=== PATIENT | female | born 1980 | race African-American/Black ===

== ENCOUNTER 2016-11-20 15:58 | Emergency (ER) | payer OTHER ==
[2016-11-20] MEDS ORDERED: NORCO, ANEXSIA 5/325MG TABLET (HYDROcodone/ACETAMINOPHEN) As Ordered ONE (17:15)
[2016-11-20 17:41] LABS: MEAN CORPUSCULAR HEMOGLOBIN 24.3 pg (27.0-33.0); MEAN CORPUSCULAR VOLUME 75.8 fl (80.0-96.0); WHITE BLOOD COUNT 6.8 K/mm3 (4.0-10.0)
[2016-11-20 18:25] LABS: CONTROL LINE HCG INT CTR LINE PRESENT
[2016-11-20 18:29] LABS: ANION GAP 7 MEQ/L (8-16); BLOOD UREA NITROGEN 18 MG/DL (7-18); CARBON DIOXIDE LEVEL 30 MEQ/L (21-32); CHLORIDE LEVEL 101 MEQ/L (98-107); CREATININE FOR GFR 0.92 MG/DL (0.55-1.02); GLOMERULAR FILTRATION RATE > 60.0 (>60); GLUCOSE, FASTING 249 MG/DL (70-105); SODIUM LEVEL 138 MEQ/L (136-145)
--- NOTE | 2016-11-20 19:23 | REP ---
PELVIC ULTRASOUND AND ENDOVAGINAL PROBE ULTRASOUND: 11/20/2016. Clinical history: Right lower quadrant pain. Comparison: 10/15/2016. Findings transverse and longitudinal views with the transabdominal and endovaginal probes were utilized. The uterus is deviated towards the right side and is retroflexed. It is somewhat enlarged at 11.3 x 5.4 x 7 cm. The central and endometrial stripe with a normal thickness of 3.4 mm. No discrete or measurable masses are noted in the uterus although it is subtly heterogeneous. Right ovary is 2.9 x 1.7 x 3 cm. The left ovary is 2.9 x 1.2 x 3.2 cm. Doppler tracing shows resistive index of 0.45 for the right and 0.61 for the left ovary. There are small follicles in both ovaries but no cyst or solid mass evident. The largest follicle on the right is 12 mm and on the left about 8 meters. There is a small amount of fluid in the posterior cul-de-sac. Impression: 1. Retroverted uterus slightly deviated towards the right and somewhat enlarged and slightly heterogeneous. No discrete mass with normal endometrial stripe. 2. Ovaries normal in size and blood flow. No cyst, solid mass or evidence for torsion. However, there is a small amount of fluid in the posterior cul-de-sac. Signed by Kyree Major MD 11/20/2016 08:05 P
--- NOTE | 2016-11-20 19:34 | EDDOCDS ---
Physician Documentation [facility] Name: Cami Dc Age: 36 yrs Sex: Female : 1980 Arrival Date: 11/20/2016 Time: 15:58 Bed PR Private MD: No Pcp Disposition: 11/20/16 19:18 Discharged to Home/Self Care. Impression: Abdominal and pelvic pain. - Condition is Stable. - Discharge Instructions: Abdominal Pain, Adult. - Prescriptions for Naprosyn 500 mg Oral Tablet - take 1 tablet by ORAL route 2 times per day take with food; 30 tablet. Zofran 4 mg Oral Tablet - take 1 tablet by ORAL route 4 times per day As needed; 10 tablet. - Medication Reconciliation, Local Pharmacy Hours form. - Follow up: Felicita Arroyo MD; When: Call to arrange an appointment; Reason: Further diagnostic work-up, Continuance of care. - Problem is an ongoing problem. - Symptoms are unchanged. Historical: - Allergies: no known allergies; - Home Meds: 1. metformin 500 mg Oral tab 2 times per day (Last dose: 11/19/2016 22:00) - PMHx: Diabetes - NIDDM: controlled; Ovarian cyst; - PSHx: none; - Social history: Smoking status: Patient states was never smoker of tobacco. Patient uses alcohol occasionally. Patient/guardian denies using street drugs, No barriers to communication noted, The patient speaks fluent Swazi, Speaks appropriately for age. - Family history: Not pertinent. - : The pt / caregiver states he / she is not on anticoagulants. Home medication list is obtained from the patient. - Exposure Risk Screening:: None identified. 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 6 in. (167.64 cm); Pain 9/10; 19:30 BP 125 / 71; Pulse 85; Resp 16; Temp 96.8(O); Pulse Ox 100% on R/A; Pain 5/10; jf3 16:00 Body Mass Index 21.95 (61.69 kg, 167.64 cm) cmb MDM: 16:47 UA Ordered. EDMS 17:14 HYDROcodone-acetaminophen 5 mg-325 mg 1 tabs PO once ordered. ke 17:14 UA Reviewed. ke 17:15 CBC Ordered. EDMS 17:15 BMP Ordered. EDMS 17:15 HCG,Serum Qualitative Ordered. EDMS 17:15 -US Pelvic Non-Ob Complete Ordered. EDMS 17:15 DUPLEX SCAN LIMITED (DOPPLER)+US Ordered. EDMS 17:25 [facility] Payment Agreement was scanned into [employer] and attached to record. gjb 17:25 Financial registration complete. gjb 17:44 Transvaginal NON- US Ordered. EDMS 19:15 CBC Reviewed. ke 19:15 BMP Reviewed. ke 19:15 HCG,Serum Qualitative Reviewed. katia Point of Care Testing: Urine : 16:45 hCG Reading: Negative; Control Reading: Positive; ttb Ranges: Administered Medications: 17:17 Drug: HYDROcodone-acetaminophen 1 tabs [hydrocodone 5 mg-acetaminophen 325 mg tablet (1 jf3 tabs)] Route: PO; Signatures: Dispatcher [employer] EDJong Tirado, POWER LINE INSTALLER AND REPAIRER POWER LINE INSTALLER AND REPAIRERRosa Melgoza RN RN ttb Bhavik Cruz,RN RN Yee Pena The chart was reviewed and I authenticate all verbal orders and agree with the evaluation and treatment provided.Attachments: 17:25 [facility] Payment Agreement gjb MTDD
--- NOTE | 2016-11-20 19:34 | EDDOCDS ---
Nurse's Notes [facility] Name: Cami Dc Age: 36 yrs Sex: Female : 1980 Arrival Date: 11/20/2016 Time: 15:58 Bed PR Private MD: No Pcp Diagnosis: Abdominal and pelvic pain Presentation: 11/20 16:14 Presenting complaint: Patient states: right lower abd pain : dx with ovarian cyst last ttb week. Pain increased today, pt unable to get into see PCP until Friday. 9/10 pain. Denies n/v/d. "cramping". Denies changes or vag bleeding. Risk factors: the patient reports no vaginal bleeding. Adult Sepsis Screening: The patient does not have new or worsening altered mentation. Patient's respiratory rate is less than 22. Systolic blood pressure is greater than 100. Patient has a qSOFA score of 0- Negative Sepsis Screen. Suicide/Homicide risk assessment- the patient denies having any suicidal and/or homicidal ideations and does not present with any other emotional, behavioral or mental health complaints. Status: Patient is not a service crew leader or dependent. Transition of care: patient was not received from another setting of care. 16:14 Acuity: DIRK Level 3 ttb 16:14 Method Of Arrival: Walkin/Carried/Asstd ttb Triage Assessment: 16:16 General: Appears in no apparent distress, uncomfortable, well nourished, well groomed, ttb Behavior is appropriate for age, cooperative, pleasant. Pain: Location: 9/10 Pain does not radiate. HIV screening NA for this visit Offered previously. Neurological: Level of Consciousness is awake, alert, Oriented to person, place, time. Cardiovascular: Chest pain is denied. Respiratory: No deficits noted. Airway is patent Denies cough, shortness of breath. GI: Reports lower abdominal pain, Denies constipation, diarrhea, nausea, vomiting. : Denies burning with urination, urinary frequency, urgency, vaginal bleeding. Derm: Skin is normal. Injury Description: No known injury. 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 metformin 500 mg Oral tab 2 times per day (Last dose: 11/19/2016 22:00) - PMHx: Diabetes - NIDDM: controlled; Ovarian cyst; - PSHx: none; - Social history: Smoking status: Patient states was never smoker of tobacco. Patient uses alcohol occasionally. Patient/guardian denies using street drugs, No barriers to communication noted, The patient speaks fluent East Timorese, Speaks appropriately for age. - Family history: Not pertinent. - : The pt / caregiver states he / she is not on anticoagulants. Home medication list is obtained from the patient. - Exposure Risk Screening:: None identified. Screenin:30 Screening information is obtained from the patient. Fall risk: No risks identified. jf3 Assistance ADL's: requires no assistance with activities of daily living. Abuse/DV Screen: The patient / caregiver reports he/she is: not in a situation that causes fear, pain or injury. Nutritional screening: No deficits noted. Advance Directives: Currently, there is no health care proxy. home support is adequate. Assessment: 19:30 General: Appears in no apparent distress, comfortable, Behavior is cooperative. Pain: jf3 Pain currently is 5 out of 10 on a pain scale. Neurological: Level of Consciousness is awake, alert, Oriented to person, place, time. Cardiovascular: Capillary refill < 3 seconds Chest pain is denied. Respiratory: Airway is patent Respiratory effort is even, unlabored, Respiratory pattern is regular, symmetrical. GI: Abdomen is non- distended Bowel sounds present X 4 quads. Abd is soft X 4 quads. Derm: Skin is normal. Vital Signs: 16:00 BP 112 / 74; Pulse 88; Resp 16; Temp 97.3(O); Pulse Ox 100% ; Weight 61.69 kg; Height 5 cmb ft. 6 in. (167.64 cm); Pain 9/10; 19:30 BP 125 / 71; Pulse 85; Resp 16; Temp 96.8(O); Pulse Ox 100% on R/A; Pain 5/10; jf3 16:00 Body Mass Index 21.95 (61.69 kg, 167.64 cm) cmb Vitals: 16:00 Log In Time: November 20, 2016 at 15:58. cmb ED Course: 15:58 Patient visited by Edwina Gomez. cmb 15:58 Patient moved to Waiting cmb 15:59 No Pcp is Private Physician. cmb 16:00 Patient moved to Pre RCE cmb 16:15 Triage Initiated ttb 16:19 Patient visited by Rosa Ramos RN. ttb 16:45 Urine collected. Clean catch specimen. ttb 16:52 Patient moved to Triage 1 jf3 16:52 Patient moved to Pre RCE jf3 16:53 Patient moved to Triage 3 jf3 16:59 UA Sent. rs6 17:07 [facility]. ke 17:07 Patient visited by Jong Petty FNP. ke 17:07 Patient visited by Jong Petty FNP. ke 17:23 HCG,Serum Qualitative Sent. jf3 17:23 BMP Sent. jf3 17:23 CBC Sent. jf3 17:25 [facility] Payment Agreement was scanned into [employer] and attached to record. gjb 17:26 Patient moved to TR1 mlb1 17:27 Patient moved to Ultrasound am17 17:29 Patient name changed from Cami\\S\\\\S\\Dc\\S\\ to Cami\\S\\ \\S\\Dc. EDMS 17:42 Patient visited by Jong Petty FNP. ke 17:42 Patient moved to TR1 am17 18:22 Patient visited by Jong Petty FNP. ke 18:59 Patient visited by Jong Petty FNP. ke 19:17 Felicita Arroyo MD is Referral Physician. ke 19:21 Patient moved to PR1 / 25 jf3 19:30 The patient / caregiver is instructed regarding the plan of care and ED course. jf3 19:30 No IV's were initiated during this patient's visit. No procedures done that require jf3 assistance. Administered Medications: 17:17 Drug: HYDROcodone-acetaminophen 1 tabs [hydrocodone 5 mg-acetaminophen 325 mg tablet (1 jf3 tabs)] Route: PO; Point of Care Testing: Urine : 16:45 hCG Reading: Negative; Control Reading: Positive; ttb Ranges: Order Results: Lab Order: UA; SPEC'M 11/20/16 16:20 Test: APPEARANCE, URINE; Value: HAZY; Range: CLEAR; Status: F Test: COLOR, URINE; Value: YELLOW; Range: YELLOW; Status: F Test: PH,URINE; Value: 6.0; Range: 5.0-9.0; Units: UNITS; Status: F Test: SPECIFIC GRAVITY URINE AUTO; Value: 1.029; Range: 1.002-1.035; Status: F Test: PROTEIN, URINE AUTO; Value: NEGATIVE; Range: NEGATIVE; Units: mg/dL; Status: F Test: GLUCOSE, URINE (UA) AUTO; Value: 3+; Range: NEGATIVE; Abnormal: Above high normal; Units: mg/dL; Status: F Test: KETONE, URINE AUTO; Value: NEGATIVE; Range: NEGATIVE; Units: mg/dL; Status: F Test: UROBILINOGEN, URINE AUTO; Value: 0.2; Range: 0.0-2.0; Units: mg/dL; Status: F Test: BILIRUBIN, URINE AUTO; Value: NEGATIVE; Range: NEGATIVE; Status: F Test: NITRITE, URINE AUTO; Value: NEGATIVE; Range: NEGATIVE; Status: F Test: LEUKOCYTE ESTERASE, URINE AUTO; Value: NEGATIVE; Range: NEGATIVE; Status: F Test: BLOOD, URINE BLOOD; Value: NEGATIVE; Range: NEGATIVE; Status: F Test: WBC, URINE AUTO; Value: 1; Range: 0-3; Units: /HPF; Status: F Test: RBC, URINE AUTO; Value: 0; Range: 0-3; Units: /HPF; Status: F Test: BACTERIA, URINE AUTO; Value: NEGATIVE; Range: NEGATIVE; Status: F Test: SQUAMOUS EPITHELIAL CELL UR AU; Value: 12; Range: 0-6; Units: /HPF; Status: F Test: MUCUS, URINE; Value: SMALL; Range: NEGATIVE; Status: F Test: HYALINE CAST, URINE AUTO; Value: 0; Range: 0-1; Units: /LPF; Status: F Lab Order: CBC; SPEC'M 11/20/16 17:21 Test: WHITE BLOOD COUNT; Value: 6.8; Range: 4.0-10.0; Units: K/mm3; Status: F Test: RED BLOOD COUNT; Value: 4.75; Range: 4.00-5.40; Units: M/mm3; Status: F Test: HEMOGLOBIN; Value: 11.5; Range: 12.0-16.0; Abnormal: Below low normal; Units: g/dl; Status: F Test: HEMATOCRIT; Value: 36.0; Range: 36.0-47.0; Units: %; Status: F Test: MEAN CORPUSCULAR VOLUME; Value: 75.8; Range: 80.0-96.0; Abnormal: Below low normal; Units: fl; Status: F Test: MEAN CORPUSCULAR HEMOGLOBIN; Value: 24.3; Range: 27.0-33.0; Abnormal: Below low normal; Units: pg; Status: F Test: MEAN CORPUSCULAR HGB CONC; Value: 32.0; Range: 32.0-36.5; Units: g/dl; Status: F Test: RED CELL DISTRIBUTION WIDTH; Value: 15.0; Range: 11.5-14.5; Abnormal: Above high normal; Units: %; Status: F Test: PLATELET COUNT, AUTOMATED; Value: 173; Range: 150-450; Units: k/mm3; Status: F Lab Order: [facility]; SPEC'M 11/20/16 17:21 Test: GLUCOSE, FASTING; Value: 249; Range: 70-105; Abnormal: Above high normal; Units: MG/DL; Status: F Test: BLOOD UREA NITROGEN; Value: 18; Range: 7-18; Units: MG/DL; Status: F Test: CREATININE FOR GFR; Value: 0.92; Range: 0.55-1.02; Units: MG/DL; Status: F Test: SODIUM LEVEL; Range: 136-145; Units: MEQ/L; Status: I Test: POTASSIUM SERUM; Range: 3.5-5.1; Units: MEQ/L; Status: I Test: CHLORIDE LEVEL; Range: 98-107; Units: MEQ/L; Status: I Test: CARBON DIOXIDE LEVEL; Range: 21-32; Units: MEQ/L; Status: I Test: ANION GAP; Range: 8-16; Units: MEQ/L; Status: I Test: CALCIUM LEVEL; Range: 8.5-10.1; Units: MG/DL; Status: I Test: GLOMERULAR FILTRATION RATE; Value: > 60.0; Range: >60; Status: F Test: SODIUM LEVEL; Value: 138; Range: 136-145; Units: MEQ/L; Status: F Test: POTASSIUM SERUM; Value: 4.0; Range: 3.5-5.1; Units: MEQ/L; Status: F Test: CHLORIDE LEVEL; Value: 101; Range: 98-107; Units: MEQ/L; Status: F Test: CARBON DIOXIDE LEVEL; Value: 30; Range: 21-32; Units: MEQ/L; Status: F Test: ANION GAP; Value: 7; Range: 8-16; Abnormal: Below low normal; Units: MEQ/L; Status: F Test: CALCIUM LEVEL; Value: 9.0; Range: 8.5-10.1; Units: MG/DL; Status: F Test Note: ; Units are mL/min/1.73 m2 Chronic Kidney Disease Staging per NKF: Stage I & II GFR >=60 Normal to Mildly Decreased Stage III GFR 30-59 Moderately Decreased Stage IV GFR 15-29 Severely Decreased Stage V GFR <15 Very Little GFR Left ESRD GFR <15 on HR INTERN Lab Order: HCG,Serum Qualitative; SPEC'M 11/20/16 17:21 Test: HCG, SERUM QUALITATIVE; Value: NEGATIVE; Range: NEGATIVE; Status: F Outcome: 19:18 Discharge ordered by Provider. 19:32 Discharge Assessment: Patient awake, alert and oriented x 3. No cognitive and/or jf3 functional deficits noted. Patient verbalized understanding of disposition instructions. patient administered narcotics - yes. Pt provided with safe discharge. The following High Risk Discharge criteria are identified: None. Discharged to home ambulatory, with significant other. Condition: stable. Discharge instructions given to patient, significant other, Instructed on discharge instructions, follow up and referral plans. medication usage, Demonstrated understanding of instructions, medications, Pt was receptive of discharge instructions/ teaching. Ultrasound Study completed. Property :Personal belongings accompany Pt. 19:33 Patient left the ED. jf3 Signatures: Dispatcher [employer] EDMS Jong Petty, PROCESS ENGINEERING MANAGER PROCESS ENGINEERING MANAGER Joseph Olivares RN RN mlb1 Edwina Gomez Teresa RN RN ttb Giovanna Grimm am17 Kateryna Roberto, OUTBOUND SALES CONSULTANT OUTBOUND SALES CONSULTANT rs6 Bhavik Cruz,DAVE RN jf3 Yee Cornelius [facility]
--- NOTE | 2016-11-22 20:34 | EDDOCDS ---
Physician Documentation [facility] Name: Cami Dc Age: 36 yrs Sex: Female : 1980 Arrival Date: 11/20/2016 Time: 15:58 Bed PR Private MD: No Pcp Disposition: 11/20/16 19:18 Discharged to Home/Self Care. Impression: Abdominal and pelvic pain. - Condition is Stable. - Discharge Instructions: Abdominal Pain, Adult. - Prescriptions for Naprosyn 500 mg Oral Tablet - take 1 tablet by ORAL route 2 times per day take with food; 30 tablet. Zofran 4 mg Oral Tablet - take 1 tablet by ORAL route 4 times per day As needed; 10 tablet. - Medication Reconciliation, Local Pharmacy Hours form. - Follow up: Felicita Arroyo MD; When: Call to arrange an appointment; Reason: Further diagnostic work-up, Continuance of care. - Problem is an ongoing problem. - Symptoms are unchanged. Historical: - Allergies: no known allergies; - Home Meds: 1. metformin 500 mg Oral tab 2 times per day (Last dose: 11/19/2016 22:00) - PMHx: Diabetes - NIDDM: controlled; Ovarian cyst; - PSHx: none; - Social history: Smoking status: Patient states was never smoker of tobacco. Patient uses alcohol occasionally. Patient/guardian denies using street drugs, No barriers to communication noted, The patient speaks fluent Bahraini, Speaks appropriately for age. - Family history: Not pertinent. - : The pt / caregiver states he / she is not on anticoagulants. Home medication list is obtained from the patient. - Exposure Risk Screening:: None identified. 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 6 in. (167.64 cm); Pain 9/10; 19:30 BP 125 / 71; Pulse 85; Resp 16; Temp 96.8(O); Pulse Ox 100% on R/A; Pain 5/10; jf3 16:00 Body Mass Index 21.95 (61.69 kg, 167.64 cm) cmb MDM: 16:47 UA Ordered. EDMS 17:14 HYDROcodone-acetaminophen 5 mg-325 mg 1 tabs PO once ordered. ke 17:14 UA Reviewed. ke 17:15 CBC Ordered. EDMS 17:15 BMP Ordered. EDMS 17:15 HCG,Serum Qualitative Ordered. EDMS 17:15 -US Pelvic Non-Ob Complete Ordered. EDMS 17:15 DUPLEX SCAN LIMITED (DOPPLER)+US Ordered. EDMS 17:25 [facility] Payment Agreement was scanned into [employer] and attached to record. gjb 17:25 Financial registration complete. gjb 17:44 Transvaginal NON- US Ordered. EDMS 19:15 CBC Reviewed. ke 19:15 BMP Reviewed. ke 19:15 HCG,Serum Qualitative Reviewed. ke 11/21 10:04 T-Sheet-- Draft Copy was scanned into [employer] and attached to record. miquel Point of Care Testing: Urine : 11/20 16:45 hCG Reading: Negative; Control Reading: Positive; ttb Ranges: Administered Medications: 17:17 Drug: HYDROcodone-acetaminophen 1 tabs [hydrocodone 5 mg-acetaminophen 325 mg tablet (1 jf3 tabs)] Route: PO; Signatures: Dispatcher [employer] EDMS Oriana Braga, Reg Reg gb Jong Petty, CROWN BLOCKER CROWN BLOCKER Rosa Verdin RN RN Bhavik Lockwood,DAVE RN Yee Pena The chart was reviewed and I authenticate all verbal orders and agree with the evaluation and treatment provided.Attachments: 17:25 [facility] Payment Agreement [facility] 11/21 10:04 T-Sheet-- Draft Copy gb Chart Complete MTDD
--- NOTE | 2016-11-22 20:34 | EDDOCDS ---
Nurse's Notes [facility] Name: Cami Dc Age: 36 yrs Sex: Female : 1980 Arrival Date: 11/20/2016 Time: 15:58 Bed PR Private MD: No Pcp Diagnosis: Abdominal and pelvic pain Presentation: 11/20 16:14 Presenting complaint: Patient states: right lower abd pain : dx with ovarian cyst last ttb week. Pain increased today, pt unable to get into see PCP until Friday. 9/10 pain. Denies n/v/d. "cramping". Denies changes or vag bleeding. Risk factors: the patient reports no vaginal bleeding. Adult Sepsis Screening: The patient does not have new or worsening altered mentation. Patient's respiratory rate is less than 22. Systolic blood pressure is greater than 100. Patient has a qSOFA score of 0- Negative Sepsis Screen. Suicide/Homicide risk assessment- the patient denies having any suicidal and/or homicidal ideations and does not present with any other emotional, behavioral or mental health complaints. Status: Patient is not a termite control servicer or dependent. Transition of care: patient was not received from another setting of care. 16:14 Acuity: DIRK Level 3 ttb 16:14 Method Of Arrival: Walkin/Carried/Asstd ttb Triage Assessment: 16:16 General: Appears in no apparent distress, uncomfortable, well nourished, well groomed, ttb Behavior is appropriate for age, cooperative, pleasant. Pain: Location: 9/10 Pain does not radiate. HIV screening NA for this visit Offered previously. Neurological: Level of Consciousness is awake, alert, Oriented to person, place, time. Cardiovascular: Chest pain is denied. Respiratory: No deficits noted. Airway is patent Denies cough, shortness of breath. GI: Reports lower abdominal pain, Denies constipation, diarrhea, nausea, vomiting. : Denies burning with urination, urinary frequency, urgency, vaginal bleeding. Derm: Skin is normal. Injury Description: No known injury. 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 metformin 500 mg Oral tab 2 times per day (Last dose: 11/19/2016 22:00) - PMHx: Diabetes - NIDDM: controlled; Ovarian cyst; - PSHx: none; - Social history: Smoking status: Patient states was never smoker of tobacco. Patient uses alcohol occasionally. Patient/guardian denies using street drugs, No barriers to communication noted, The patient speaks fluent Nauruan, Speaks appropriately for age. - Family history: Not pertinent. - : The pt / caregiver states he / she is not on anticoagulants. Home medication list is obtained from the patient. - Exposure Risk Screening:: None identified. Screenin:30 Screening information is obtained from the patient. Fall risk: No risks identified. jf3 Assistance ADL's: requires no assistance with activities of daily living. Abuse/DV Screen: The patient / caregiver reports he/she is: not in a situation that causes fear, pain or injury. Nutritional screening: No deficits noted. Advance Directives: Currently, there is no health care proxy. home support is adequate. Assessment: 19:30 General: Appears in no apparent distress, comfortable, Behavior is cooperative. Pain: jf3 Pain currently is 5 out of 10 on a pain scale. Neurological: Level of Consciousness is awake, alert, Oriented to person, place, time. Cardiovascular: Capillary refill < 3 seconds Chest pain is denied. Respiratory: Airway is patent Respiratory effort is even, unlabored, Respiratory pattern is regular, symmetrical. GI: Abdomen is non- distended Bowel sounds present X 4 quads. Abd is soft X 4 quads. Derm: Skin is normal. Vital Signs: 16:00 BP 112 / 74; Pulse 88; Resp 16; Temp 97.3(O); Pulse Ox 100% ; Weight 61.69 kg; Height 5 cmb ft. 6 in. (167.64 cm); Pain 9/10; 19:30 BP 125 / 71; Pulse 85; Resp 16; Temp 96.8(O); Pulse Ox 100% on R/A; Pain 5/10; jf3 16:00 Body Mass Index 21.95 (61.69 kg, 167.64 cm) cmb Vitals: 16:00 Log In Time: November 20, 2016 at 15:58. cmb ED Course: 15:58 Patient visited by Edwina Gomez. cmb 15:58 Patient moved to Waiting cmb 15:59 No Pcp is Private Physician. cmb 16:00 Patient moved to Pre RCE cmb 16:15 Triage Initiated ttb 16:19 Patient visited by Rosa Ramos RN. ttb 16:45 Urine collected. Clean catch specimen. ttb 16:52 Patient moved to Triage 1 jf3 16:52 Patient moved to Pre RCE jf3 16:53 Patient moved to Triage 3 jf3 16:59 UA Sent. rs6 17:07 [facility] ke 17:07 Patient visited by Jong Petty FNP. ke 17:07 Patient visited by Jong Petty FNP. ke 17:23 HCG,Serum Qualitative Sent. jf3 17:23 BMP Sent. jf3 17:23 CBC Sent. jf3 17:25 [facility] [place] Payment Agreement was scanned into Invisible[employer] and attached to record. gjb 17:26 Patient moved to TR1 mlb1 17:27 Patient moved to Ultrasound am17 17:29 Patient name changed from Cami\\S\\\\S\\Dc\\S\\ to Cami\\S\\ \\S\\Dc. EDMS 17:42 Patient visited by Jong Petty FNP. ke 17:42 Patient moved to TR1 am17 18:22 Patient visited by Jong Petty FNP. ke 18:59 Patient visited by Jong Petty FNP. ke 19:17 Felicita Arroyo MD is Referral Physician. ke 19:21 Patient moved to PR1 / 25 jf3 19:30 The patient / caregiver is instructed regarding the plan of care and ED course. jf3 19:30 No IV's were initiated during this patient's visit. No procedures done that require jf3 assistance. 20:24 -US Pelvic Non-Ob Complete Returned. EDMS 20:24 DUPLEX SCAN LIMITED (DOPPLER)+US Returned. EDMS 20:24 Transvaginal NON- US Returned. EDMS 11/21 10:04 T-Sheet-- Draft Copy was scanned into Invisible[employer]M and attached to record. gb Administered Medications: 11/20 17:17 Drug: HYDROcodone-acetaminophen 1 tabs [hydrocodone 5 mg-acetaminophen 325 mg tablet (1 jf3 tabs)] Route: PO; Point of Care Testing: Urine : 16:45 hCG Reading: Negative; Control Reading: Positive; ttb Ranges: Order Results: Lab Order: UA; SPEC'M 11/20/16 16:20 Test: APPEARANCE, URINE; Value: HAZY; Range: CLEAR; Status: F Test: COLOR, URINE; Value: YELLOW; Range: YELLOW; Status: F Test: PH,URINE; Value: 6.0; Range: 5.0-9.0; Units: UNITS; Status: F Test: SPECIFIC GRAVITY URINE AUTO; Value: 1.029; Range: 1.002-1.035; Status: F Test: PROTEIN, URINE AUTO; Value: NEGATIVE; Range: NEGATIVE; Units: mg/dL; Status: F Test: GLUCOSE, URINE (UA) AUTO; Value: 3+; Range: NEGATIVE; Abnormal: Above high normal; Units: mg/dL; Status: F Test: KETONE, URINE AUTO; Value: NEGATIVE; Range: NEGATIVE; Units: mg/dL; Status: F Test: UROBILINOGEN, URINE AUTO; Value: 0.2; Range: 0.0-2.0; Units: mg/dL; Status: F Test: BILIRUBIN, URINE AUTO; Value: NEGATIVE; Range: NEGATIVE; Status: F Test: NITRITE, URINE AUTO; Value: NEGATIVE; Range: NEGATIVE; Status: F Test: LEUKOCYTE ESTERASE, URINE AUTO; Value: NEGATIVE; Range: NEGATIVE; Status: F Test: BLOOD, URINE BLOOD; Value: NEGATIVE; Range: NEGATIVE; Status: F Test: WBC, URINE AUTO; Value: 1; Range: 0-3; Units: /HPF; Status: F Test: RBC, URINE AUTO; Value: 0; Range: 0-3; Units: /HPF; Status: F Test: BACTERIA, URINE AUTO; Value: NEGATIVE; Range: NEGATIVE; Status: F Test: SQUAMOUS EPITHELIAL CELL UR AU; Value: 12; Range: 0-6; Units: /HPF; Status: F Test: MUCUS, URINE; Value: SMALL; Range: NEGATIVE; Status: F Test: HYALINE CAST, URINE AUTO; Value: 0; Range: 0-1; Units: /LPF; Status: F Lab Order: CBC; SPEC'M 11/20/16 17:21 Test: WHITE BLOOD COUNT; Value: 6.8; Range: 4.0-10.0; Units: K/mm3; Status: F Test: RED BLOOD COUNT; Value: 4.75; Range: 4.00-5.40; Units: M/mm3; Status: F Test: HEMOGLOBIN; Value: 11.5; Range: 12.0-16.0; Abnormal: Below low normal; Units: g/dl; Status: F Test: HEMATOCRIT; Value: 36.0; Range: 36.0-47.0; Units: %; Status: F Test: MEAN CORPUSCULAR VOLUME; Value: 75.8; Range: 80.0-96.0; Abnormal: Below low normal; Units: fl; Status: F Test: MEAN CORPUSCULAR HEMOGLOBIN; Value: 24.3; Range: 27.0-33.0; Abnormal: Below low normal; Units: pg; Status: F Test: MEAN CORPUSCULAR HGB CONC; Value: 32.0; Range: 32.0-36.5; Units: g/dl; Status: F Test: RED CELL DISTRIBUTION WIDTH; Value: 15.0; Range: 11.5-14.5; Abnormal: Above high normal; Units: %; Status: F Test: PLATELET COUNT, AUTOMATED; Value: 173; Range: 150-450; Units: k/mm3; Status: F Lab Order: [facility] 11/20/16 17:21 Test: GLUCOSE, FASTING; Value: 249; Range: 70-105; Abnormal: Above high normal; Units: MG/DL; Status: F Test: BLOOD UREA NITROGEN; Value: 18; Range: 7-18; Units: MG/DL; Status: F Test: CREATININE FOR GFR; Value: 0.92; Range: 0.55-1.02; Units: MG/DL; Status: F Test: SODIUM LEVEL; Range: 136-145; Units: MEQ/L; Status: I Test: POTASSIUM SERUM; Range: 3.5-5.1; Units: MEQ/L; Status: I Test: CHLORIDE LEVEL; Range: 98-107; Units: MEQ/L; Status: I Test: CARBON DIOXIDE LEVEL; Range: 21-32; Units: MEQ/L; Status: I Test: ANION GAP; Range: 8-16; Units: MEQ/L; Status: I Test: CALCIUM LEVEL; Range: 8.5-10.1; Units: MG/DL; Status: I Test: GLOMERULAR FILTRATION RATE; Value: > 60.0; Range: >60; Status: F Test: SODIUM LEVEL; Value: 138; Range: 136-145; Units: MEQ/L; Status: F Test: POTASSIUM SERUM; Value: 4.0; Range: 3.5-5.1; Units: MEQ/L; Status: F Test: CHLORIDE LEVEL; Value: 101; Range: 98-107; Units: MEQ/L; Status: F Test: CARBON DIOXIDE LEVEL; Value: 30; Range: 21-32; Units: MEQ/L; Status: F Test: ANION GAP; Value: 7; Range: 8-16; Abnormal: Below low normal; Units: MEQ/L; Status: F Test: CALCIUM LEVEL; Value: 9.0; Range: 8.5-10.1; Units: MG/DL; Status: F Test Note: ; Units are mL/min/1.73 m2 Chronic Kidney Disease Staging per NKF: Stage I & II GFR >=60 Normal to Mildly Decreased Stage III GFR 30-59 Moderately Decreased Stage IV GFR 15-29 Severely Decreased Stage V GFR <15 Very Little GFR Left ESRD GFR <15 on ABRASIVE GRINDER Lab Order: HCG,Serum Qualitative; SPEC'M 11/20/16 17:21 Test: HCG, SERUM QUALITATIVE; Value: NEGATIVE; Range: NEGATIVE; Status: F Radiology Order: -US Pelvic Non-Ob Complete Test: -US Pelvic Non-Ob Complete REASON FOR EXAMINATION: ovarian cyst; PELVIC ULTRASOUND AND ENDOVAGINAL PROBE ULTRASOUND: 11/20/2016.; ; Clinical history: Right lower quadrant pain.; ; Comparison: 10/15/2016.; ; Findings transverse and longitudinal views with the transabdominal and; endovaginal probes were utilized. The uterus is deviated towards the right side; and is retroflexed. It is somewhat enlarged at 11.3 x 5.4 x 7 cm. The central; and endometrial stripe with a normal thickness of 3.4 mm. No discrete or; measurable masses are noted in the uterus although it is subtly heterogeneous.; Right ovary is 2.9 x 1.7 x 3 cm. The left ovary is 2.9 x 1.2 x 3.2 cm. Doppler; tracing shows resistive index of 0.45 for the right and 0.61 for the left ovary.; There are small follicles in both ovaries but no cyst or solid mass evident. The; largest follicle on the right is 12 mm and on the left about 8 meters.; ; There is a small amount of fluid in the posterior cul-de-sac.; ; Impression:; ; 1. Retroverted uterus slightly deviated towards the right and somewhat enlarged; and slightly heterogeneous. No discrete mass with normal endometrial stripe.; ; 2. Ovaries normal in size and blood flow. No cyst, solid mass or evidence for; torsion. However, there is a small amount of fluid in the posterior cul-de-sac.; ; ; Signed by; Kyree Major MD 11/20/2016 08:05 P; Radiology Order: DUPLEX SCAN LIMITED (DOPPLER)+US Test: DUPLEX SCAN LIMITED (DOPPLER)+US REASON FOR EXAMINATION: cvarian cyst; PELVIC ULTRASOUND AND ENDOVAGINAL PROBE ULTRASOUND: 11/20/2016.; ; Clinical history: Right lower quadrant pain.; ; Comparison: 10/15/2016.; ; Findings transverse and longitudinal views with the transabdominal and; endovaginal probes were utilized. The uterus is deviated towards the right side; and is retroflexed. It is somewhat enlarged at 11.3 x 5.4 x 7 cm. The central; and endometrial stripe with a normal thickness of 3.4 mm. No discrete or; measurable masses are noted in the uterus although it is subtly heterogeneous.; Right ovary is 2.9 x 1.7 x 3 cm. The left ovary is 2.9 x 1.2 x 3.2 cm. Doppler; tracing shows resistive index of 0.45 for the right and 0.61 for the left ovary.; There are small follicles in both ovaries but no cyst or solid mass evident. The; largest follicle on the right is 12 mm and on the left about 8 meters.; ; There is a small amount of fluid in the posterior cul-de-sac.; ; Impression:; ; 1. Retroverted uterus slightly deviated towards the right and somewhat enlarged; and slightly heterogeneous. No discrete mass with normal endometrial stripe.; ; 2. Ovaries normal in size and blood flow. No cyst, solid mass or evidence for; torsion. However, there is a small amount of fluid in the posterior cul-de-sac.; ; ; Signed by; Kyree Major MD 11/20/2016 08:05 P; Radiology Order: Transvaginal NON- US Test: Transvaginal NON- US REASON FOR EXAMINATION: EVAL OVARIES; PELVIC ULTRASOUND AND ENDOVAGINAL PROBE ULTRASOUND: 11/20/2016.; ; Clinical history: Right lower quadrant pain.; ; Comparison: 10/15/2016.; ; Findings transverse and longitudinal views with the transabdominal and; endovaginal probes were utilized. The uterus is deviated towards the right side; and is retroflexed. It is somewhat enlarged at 11.3 x 5.4 x 7 cm. The central; and endometrial stripe with a normal thickness of 3.4 mm. No discrete or; measurable masses are noted in the uterus although it is subtly heterogeneous.; Right ovary is 2.9 x 1.7 x 3 cm. The left ovary is 2.9 x 1.2 x 3.2 cm. Doppler; tracing shows resistive index of 0.45 for the right and 0.61 for the left ovary.; There are small follicles in both ovaries but no cyst or solid mass evident. The; largest follicle on the right is 12 mm and on the left about 8 meters.; ; There is a small amount of fluid in the posterior cul-de-sac.; ; Impression:; ; 1. Retroverted uterus slightly deviated towards the right and somewhat enlarged; and slightly heterogeneous. No discrete mass with normal endometrial stripe.; ; 2. Ovaries normal in size and blood flow. No cyst, solid mass or evidence for; torsion. However, there is a small amount of fluid in the posterior cul-de-sac.; ; ; Signed by; Kyree Major MD 11/20/2016 08:05 P; Outcome: 19:18 Discharge ordered by Provider. ke 19:32 Discharge Assessment: Patient awake, alert and oriented x 3. No cognitive and/or jf3 functional deficits noted. Patient verbalized understanding of disposition instructions. patient administered narcotics - yes. Pt provided with safe discharge. The following High Risk Discharge criteria are identified: None. Discharged to home ambulatory, with significant other. Condition: stable. Discharge instructions given to patient, significant other, Instructed on discharge instructions, follow up and referral plans. medication usage, Demonstrated understanding of instructions, medications, Pt was receptive of discharge instructions/ teaching. Ultrasound Study completed. Property :Personal belongings accompany Pt. 19:33 Patient left the ED. jf3 Signatures: Dispatcher [employer] EDOriana Golden, Mohamud Reg Jong Ponce, FUR GRADER FUR GRADER Joseph Olivares RN RN mlb1 Edwina Gomez Teresa, RN RN ttb Giovanna Grimm am17 Kateryna Roberto, EMERGENCY DISPATCHER EMERGENCY DISPATCHER rs6 Bhavik Cruz,RN RN jf3 Yee Cornelius Chart Complete MTDD
--- NOTE | 2016-11-22 20:34 | EDDOCDS ---
Physician Documentation [facility] Name: Cami Dc Age: 36 yrs Sex: Female : 1980 Arrival Date: 11/20/2016 Time: 15:58 Bed PR Private MD: No Pcp Disposition: 11/20/16 19:18 Discharged to Home/Self Care. Impression: Abdominal and pelvic pain. - Condition is Stable. - Discharge Instructions: Abdominal Pain, Adult. - Prescriptions for Naprosyn 500 mg Oral Tablet - take 1 tablet by ORAL route 2 times per day take with food; 30 tablet. Zofran 4 mg Oral Tablet - take 1 tablet by ORAL route 4 times per day As needed; 10 tablet. - Medication Reconciliation, Local Pharmacy Hours form. - Follow up: Felicita Arroyo MD; When: Call to arrange an appointment; Reason: Further diagnostic work-up, Continuance of care. - Problem is an ongoing problem. - Symptoms are unchanged. Historical: - Allergies: no known allergies; - Home Meds: 1. metformin 500 mg Oral tab 2 times per day (Last dose: 11/19/2016 22:00) - PMHx: Diabetes - NIDDM: controlled; Ovarian cyst; - PSHx: none; - Social history: Smoking status: Patient states was never smoker of tobacco. Patient uses alcohol occasionally. Patient/guardian denies using street drugs, No barriers to communication noted, The patient speaks fluent Portuguese, Speaks appropriately for age. - Family history: Not pertinent. - : The pt / caregiver states he / she is not on anticoagulants. Home medication list is obtained from the patient. - Exposure Risk Screening:: None identified. 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 6 in. (167.64 cm); Pain 9/10; 19:30 BP 125 / 71; Pulse 85; Resp 16; Temp 96.8(O); Pulse Ox 100% on R/A; Pain 5/10; jf3 16:00 Body Mass Index 21.95 (61.69 kg, 167.64 cm) cmb MDM: 16:47 UA Ordered. EDMS 17:14 HYDROcodone-acetaminophen 5 mg-325 mg 1 tabs PO once ordered. ke 17:14 UA Reviewed. ke 17:15 CBC Ordered. EDMS 17:15 BMP Ordered. EDMS 17:15 HCG,Serum Qualitative Ordered. EDMS 17:15 -US Pelvic Non-Ob Complete Ordered. EDMS 17:15 DUPLEX SCAN LIMITED (DOPPLER)+US Ordered. EDMS 17:25 [facility] Payment Agreement was scanned into [email or web address] and attached to record. gjb 17:25 Financial registration complete. gjb 17:44 Transvaginal NON- US Ordered. EDMS 19:15 CBC Reviewed. ke 19:15 BMP Reviewed. ke 19:15 HCG,Serum Qualitative Reviewed. ke 11/21 10:04 T-Sheet-- Draft Copy was scanned into [email or web address] and attached to record. miquel Point of Care Testing: Urine : 11/20 16:45 hCG Reading: Negative; Control Reading: Positive; ttb Ranges: Administered Medications: 17:17 Drug: HYDROcodone-acetaminophen 1 tabs [hydrocodone 5 mg-acetaminophen 325 mg tablet (1 jf3 tabs)] Route: PO; Signatures: Dispatcher [employer] EDMS Oriana Braga, Reg Reg gb Jong Petty, INSERTING PRESS OPERATOR INSERTING PRESS OPERATOR Rosa Verdin RN RN Bhavik Lockwood,DAVE RN Yee Pena The chart was reviewed and I authenticate all verbal orders and agree with the evaluation and treatment provided.Attachments: 17:25 [facility] Payment Agreement [facility] 11/21 10:04 T-Sheet-- Draft Copy gb Chart Complete MTDD
== END 2016-11-20 19:33 | disposition home or self-care (01) ==
LOC: M ED 15:58
DX: R10.2 Pelvic and perineal pain (principal); E11.9 Type 2 diabetes mellitus without complications; N83.299 Other ovarian cyst, unspecified side; Z79.84 Long term (current) use of oral hypoglycemic drugs

== ENCOUNTER 2016-12-19 08:18 | Emergency (ER) | payer OTHER ==
[2016-12-19 09:36] LABS: BASO % 0.6 % (0.0-1.0); EOS # 0.3 K/mm3 (0.0-0.50); EOS % 5.8 % (0.0-3.0); LARGE UNSTAINED CELL # 0.1 K/mm3 (0.0-0.4); LARGE UNSTAINED CELL % 2.7 % (0.0-4.0); LYMPH # 2.4 K/mm3 (1.5-4.5); LYMPH % 44.5 % (24.0-44.0); MEAN CORPUSCULAR HEMOGLOBIN 24.1 pg (27.0-33.0); MEAN CORPUSCULAR HGB CONC 30.7 g/dl (32.0-36.5); MEAN CORPUSCULAR VOLUME 78.4 fl (80.0-96.0); MONO # 0.2 K/mm3 (0.0-0.8); MONO % 3.3 % (0.0-5.0); NEUTROPHILS # 2.3 K/mm3 (1.8-7.7); NEUTROPHILS % 43.1 % (36.0-66.0); PLATELET COUNT, AUTOMATED 125 k/mm3 (150-450); RED CELL DISTRIBUTION WIDTH 14.4 % (11.5-14.5); WHITE BLOOD COUNT 5.3 K/mm3 (4.0-10.0)
[2016-12-19 09:58] LABS: ALBUMIN 3.6 GM/DL (3.2-5.2); ALBUMIN/GLOBULIN RATIO 0.88 (1.00-1.93); ALKALINE PHOSPHATASE 101 U/L (45-117); ALT/SGPT 46 U/L (12-78); ANION GAP 5 MEQ/L (8-16); AST/SGOT 25 U/L (15-37); BILIRUBIN,DIRECT < 0.1 MG/DL (0.0-0.2); BILIRUBIN,TOTAL 0.2 MG/DL (0.2-1.0); BLOOD UREA NITROGEN 9 MG/DL (7-18); CALCIUM LEVEL 8.8 MG/DL (8.5-10.1); CARBON DIOXIDE LEVEL 30 MEQ/L (21-32); CHLORIDE LEVEL 103 MEQ/L (98-107); CREATININE FOR GFR 0.78 MG/DL (0.55-1.02); GLOMERULAR FILTRATION RATE > 60.0 (>60); GLUCOSE, FASTING 192 MG/DL (70-105); POTASSIUM SERUM 4.1 MEQ/L (3.5-5.1); SODIUM LEVEL 138 MEQ/L (136-145); TOTAL PROTEIN 7.7 GM/DL (6.4-8.2)
[2016-12-19] MEDS ORDERED: METOCLOPRAMIDE INJ 10MG/2ML VIAL (J2765) As Ordered ONE (10:10)
[2016-12-19] MEDS ORDERED: KETOROLAC 30 MG/ML VIAL (J1885) As Ordered ONE (11:20)
--- NOTE | 2016-12-19 12:09 | EDDOCDS ---
Physician Documentation [facility] Name: Cami Dc Age: 36 yrs Sex: Female : 1980 Arrival Date: 12/19/2016 Time: 08:18 Bed 5 Private MD: Disposition: 12/19/16 11:51 Discharged to Home/Self Care. Impression: Hyperglycemia, unspecified, Headache. - Condition is Stable. - Discharge Instructions: General Headache Without Cause, Hyperglycemia. - Medication Reconciliation, Local Pharmacy Hours form. - Follow up: Yisel Hernandez; When: Call to arrange an appointment; Reason: Continuance of care. - Problem is new. - Symptoms have improved. Historical: - Allergies: No known drug Allergies; - Home Meds: 1. metformin 500 mg Oral tab 2 times per day (Last dose: 12/19/2016 06:00) - PMHx: Diabetes - NIDDM: controlled; Ovarian cyst; - PSHx: none; - Social history: Smoking status: Patient states was never smoker of tobacco. No barriers to communication noted, The patient speaks fluent Azeri, Speaks appropriately for age. - Family history: Not pertinent. - : The pt / caregiver states he / she is not on anticoagulants. Home medication list is obtained from the patient. - Exposure Risk Screening:: None identified. Vital Signs: 12/19 09:01 BP 116 / 83; Pulse 85; Resp 18; Temp 97.3(O); Pulse Ox 98% on R/A; Weight 61.69 kg / dem1 136 lbs (R); Height 5 ft. 6 in. (167.64 cm) (R); Pain 0/10; 11:54 BP 122 / 84; Pulse 80; Resp 18; Temp 97.0(O); Pulse Ox 100% on R/A; Pain 0/10; dem1 09:01 Body Mass Index 21.95 (61.69 kg, 167.64 cm) dem1 MDM: 08:59 IV Saline Lock ordered. fg 08:59 Undress patient appropriately for examination ordered. fg 09:00 Basic Metabolic Profile Ordered. EDMS 09:00 CBC with Diff Ordered. EDMS 09:00 Lipase Ordered. EDMS 09:00 Liver Profile Ordered. EDMS 09:00 Urinalysis Ordered. EDMS 09:00 Urine Culture Ordered. EDMS 09:00 NOTHING BY MOUTH+DIET ordered. EDMS 09:00 Hcg, Serum Quantitative Ordered. EDMS 09:14 Fingerstick Blood Sugar Ordered. EDMS 09:55 NS 0.9% 1000 ml IV at bolus once ordered. fg 09:55 ketorolac 30 mg IVP once ordered. fg 09:55 Metoclopramide 5 mg IV at 40 mg/hr once over 15 mins ordered. fg 10:28 Financial registration complete. lg 10:58 [facility] Payment Agreement was scanned into [employer] and attached to record. lg Administered Medications: 10:15 Drug: NS 0.9% 1000 ml [sodium chloride 0.9 % intravenous solution] Route: IV; Rate: jo3 bolus; Site: left antecubital; 10:15 Drug: Metoclopramide 5 mg [metoclopramide 5 mg/mL injection solution] Route: IV; Rate: jo3 40 mg/hr; Infused Over: 15 mins; Site: left antecubital; 10:31 Follow up: IV Status: Completed infusion jo3 11:25 Drug: ketorolac 30 mg [ketorolac 30 mg/mL (1 mL) injection solution (1 mL)] Route: IVP; jo3 Site: left antecubital; Signatures: Dispatcher [employer] EDCarey Pereira, Reg Reg lg Katharina SorensenRN RN jo3 Carlitos Quintana, DAVE RN ml6 Dilia Marx RN RN hs1 Kenia Land MD MD fg The chart was reviewed and I authenticate all verbal orders and agree with the evaluation and treatment provided.Attachments: 10:58 [facility] Payment Agreement lg MTDD
--- NOTE | 2016-12-19 12:09 | EDDOCDS ---
Nurse's Notes [facility] Name: Cami Dc Age: 36 yrs Sex: Female : 1980 Arrival Date: 12/19/2016 Time: 08:18 Bed 5 Private MD: Diagnosis: Hyperglycemia, unspecified;Headache Presentation: 12/19 08:59 Presenting complaint: Patient states: last night sugar was around 230's. Went home hs1 checked sugar after working all night and sugar around 350. Patient took metformin and slept for a couple hours and rechecked sugar and found to be 407. Patient here for evaluation and also complaining of headache. Patient shows Glucometer at this time and last finger check 216 around 748 this morning. Adult Sepsis Screening: The patient does not have new or worsening altered mentation. Patient's respiratory rate is less than 22. Systolic blood pressure is greater than 100. Patient has a qSOFA score of 0- Negative Sepsis Screen. Suicide/Homicide risk assessment- the patient denies having any suicidal and/or homicidal ideations and does not present with any other emotional, behavioral or mental health complaints. Status: Patient is not a nutrition services associate or dependent. Transition of care: patient was not received from another setting of care. 08:59 Acuity: DIRK Level 3 hs1 08:59 Method Of Arrival: Walkin/Carried/Asstd hs1 Triage Assessment: 09:04 General: Appears in no apparent distress, Behavior is appropriate for age, cooperative. hs1 Pain: Location: headache Pain currently is 8 out of 10 on a pain scale. Quality of pain is described as throbbing, pulsating. HIV screening NA for this visit Offered previously. Neurological: Level of Consciousness is awake, alert, obeys commands. Respiratory: No deficits noted. GI: Reports nausea. Derm: No deficits noted. Historical: - Allergies: No known drug Allergies; - Home Meds: 1. metformin 500 mg Oral tab 2 times per day (Last dose: 12/19/2016 06:00) - PMHx: Diabetes - NIDDM: controlled; Ovarian cyst; - PSHx: none; - Social history: Smoking status: Patient states was never smoker of tobacco. No barriers to communication noted, The patient speaks fluent Emirati, Speaks appropriately for age. - Family history: Not pertinent. - : The pt / caregiver states he / she is not on anticoagulants. Home medication list is obtained from the patient. - Exposure Risk Screening:: None identified. Screenin:39 Screening information is obtained from the patient. Fall risk: No risks identified. jo3 Assistance ADL's: requires no assistance with activities of daily living. Abuse/DV Screen: The patient / caregiver reports he/she is: not in a situation that causes fear, pain or injury. Nutritional screening: No deficits noted. Advance Directives: There is no active DNR order. home support is adequate. Assessment: 09:35 General: Appears in no apparent distress, comfortable, well developed, well nourished, jo3 well groomed, Behavior is appropriate for age, cooperative, pleasant. General: Pt reports varying FSBS up to 400 through the night. Yesterday, FSBS in 200s through the day. Last night, developed VEGA, which persists this morning . Neurological: Level of Consciousness is awake, alert, Oriented to person, place, time. Cardiovascular: No deficits noted. Respiratory: Airway is patent Respiratory effort is even, unlabored. Derm: Skin is intact, Skin is dry, Skin is normal, Skin temperature is warm. 10:30 General: Appears in no apparent distress, comfortable, Behavior is appropriate for age, jo3 cooperative, pleasant. General: IVF infusing to asymptomatic site in LAC. Awaiting serum results for Toradol administration. Aware of plan of care . Neurological: No deficits noted. Level of Consciousness is awake, alert, Oriented to person, place, time. 11:31 General: Appears in no apparent distress, comfortable, Behavior is appropriate for age, jo3 cooperative, pleasant, Reports feeling improved at this time . Neurological: Level of Consciousness is awake, alert, Oriented to person, place, time. Cardiovascular: Capillary refill < 3 seconds is > 3 seconds Rhythm is regular. Derm: Skin is pink, warm & dry. 12:04 General: Appears in no apparent distress, comfortable, Behavior is appropriate for age, ml6 cooperative. Pain: Denies pain. Neurological: No deficits noted. Level of Consciousness is awake, alert, Oriented to person, place. Cardiovascular: No deficits noted. Capillary refill < 3 seconds is > 3 seconds in bilateral fingers Heart tones S1 S2 present Rhythm is regular. Respiratory: No deficits noted. Airway is patent Respiratory effort is even, unlabored, Respiratory pattern is regular, symmetrical, Breath sounds are clear bilaterally. Vital Signs: 09:01 BP 116 / 83; Pulse 85; Resp 18; Temp 97.3(O); Pulse Ox 98% on R/A; Weight 61.69 kg (R); dem1 Height 5 ft. 6 in. (167.64 cm) (R); Pain 0/10; 11:54 BP 122 / 84; Pulse 80; Resp 18; Temp 97.0(O); Pulse Ox 100% on R/A; Pain 0/10; dem1 09:01 Body Mass Index 21.95 (61.69 kg, 167.64 cm) [facility] ED Course: 08:19 Patient visited by Denis Preciado. jp5 08:19 Patient moved to Waiting jp5 08:42 Patient moved to Triage 1 dwg 08:57 Patient moved to 5 dwg 09:01 Patient visited by David Rosales. [facility] 09:03 Triage Initiated hs1 09:27 Kenia Land MD is Attending Physician. fg 09:27 Patient visited by Kenia Land MD. fg 09:39 The patient / caregiver is instructed regarding the plan of care and ED course. jo3 09:39 Inserted saline lock: 20 gauge in left antecubital area. Labs drawn. (by ED staff). jo3 Sent per order to lab. 09:40 Patient visited by Katharina Sorensen RN. jo3 10:32 Patient visited by Katharina Sorensen,DAVE. jo3 10:57 Patient name changed from Cami\S\\S\Dc\S\ to Cami\S\ \S\Dc. EDMS 10:58 [facility] Payment Agreement was scanned into eduClipper and attached to record. lg 11:34 Patient visited by Katharina Sorensen RN. jo3 11:50 Yisel Hernandez is Referral Physician. fg 11:55 Patient visited by David Rosales. dem1 12:07 Discontinued IV. No procedures done that require assistance. ml6 Administered Medications: 10:15 Drug: NS 0.9% 1000 ml [sodium chloride 0.9 % intravenous solution] Route: IV; Rate: jo3 bolus; Site: left antecubital; 10:15 Drug: Metoclopramide 5 mg [metoclopramide 5 mg/mL injection solution] Route: IV; Rate: jo3 40 mg/hr; Infused Over: 15 mins; Site: left antecubital; 10:31 Follow up: IV Status: Completed infusion jo3 11:25 Drug: ketorolac 30 mg [ketorolac 30 mg/mL (1 mL) injection solution (1 mL)] Route: IVP; jo3 Site: left antecubital; Order Results: Lab Order: Basic Metabolic Profile; SPEC'M 12/19/16 09:24 Test: GLUCOSE, FASTING; Value: 192; Range: 70-105; Abnormal: Above high normal; Units: MG/DL; Status: F Test: BLOOD UREA NITROGEN; Value: 9; Range: 7-18; Units: MG/DL; Status: F Test: CREATININE FOR GFR; Value: 0.78; Range: 0.55-1.02; Units: MG/DL; Status: F Test: GLOMERULAR FILTRATION RATE; Value: > 60.0; Range: >60; Status: F Test: SODIUM LEVEL; Value: 138; Range: 136-145; Units: MEQ/L; Status: F Test: POTASSIUM SERUM; Value: 4.1; Range: 3.5-5.1; Units: MEQ/L; Status: F Test: CHLORIDE LEVEL; Value: 103; Range: 98-107; Units: MEQ/L; Status: F Test: CARBON DIOXIDE LEVEL; Value: 30; Range: 21-32; Units: MEQ/L; Status: F Test: ANION GAP; Value: 5; Range: 8-16; Abnormal: Below low normal; Units: MEQ/L; Status: F Test: CALCIUM LEVEL; Value: 8.8; Range: 8.5-10.1; Units: MG/DL; Status: F Test Note: ; Units are mL/min/1.73 m2 Chronic Kidney Disease Staging per NKF: Stage I & II GFR >=60 Normal to Mildly Decreased Stage III GFR 30-59 Moderately Decreased Stage IV GFR 15-29 Severely Decreased Stage V GFR <15 Very Little GFR Left ESRD GFR <15 on [employer]CTION [employer]OR Lab Order: CBC with Diff; SPEC'12/19/16 09:24 Test: WHITE BLOOD COUNT; Value: 5.3; Range: 4.0-10.0; Units: K/mm3; Status: F Test: RED BLOOD COUNT; Value: 4.79; Range: 4.00-5.40; Units: M/mm3; Status: F Test: HEMOGLOBIN; Value: 11.5; Range: 12.0-16.0; Abnormal: Below low normal; Units: g/dl; Status: F Test: HEMATOCRIT; Value: 37.6; Range: 36.0-47.0; Units: %; Status: F Test: MEAN CORPUSCULAR VOLUME; Value: 78.4; Range: 80.0-96.0; Abnormal: Below low normal; Units: fl; Status: F Test: MEAN CORPUSCULAR HEMOGLOBIN; Value: 24.1; Range: 27.0-33.0; Abnormal: Below low normal; Units: pg; Status: F Test: MEAN CORPUSCULAR HGB CONC; Value: 30.7; Range: 32.0-36.5; Abnormal: Below low normal; Units: g/dl; Status: F Test: RED CELL DISTRIBUTION WIDTH; Value: 14.4; Range: 11.5-14.5; Units: %; Status: F Test: PLATELET COUNT, AUTOMATED; Value: 125; Range: 150-450; Abnormal: Below low normal; Units: k/mm3; Status: F Test: NEUTROPHILS %; Value: 43.1; Range: 36.0-66.0; Units: %; Status: F Test: LYMPH %; Value: 44.5; Range: 24.0-44.0; Abnormal: Above high normal; Units: %; Status: F Test: MONO %; Value: 3.3; Range: 0.0-5.0; Units: %; Status: F Test: EOS %; Value: 5.8; Range: 0.0-3.0; Abnormal: Above high normal; Units: %; Status: F Test: BASO %; Value: 0.6; Range: 0.0-1.0; Units: %; Status: F Test: LARGE UNSTAINED CELL %; Value: 2.7; Range: 0.0-4.0; Units: %; Status: F Test: NEUTROPHILS #; Value: 2.3; Range: 1.8-7.7; Units: K/mm3; Status: F Test: LYMPH #; Value: 2.4; Range: 1.5-4.5; Units: K/mm3; Status: F Test: MONO #; Value: 0.2; Range: 0.0-0.8; Units: K/mm3; Status: F Test: EOS #; Value: 0.3; Range: 0.0-0.50; Units: K/mm3; Status: F Test: BASO #; Value: 0.0; Range: 0.0-0.2; Units: K/mm3; Status: F Test: LARGE UNSTAINED CELL #; Value: 0.1; Range: 0.0-0.4; Units: K/mm3; Status: F Lab Order: Lipase; SPEC'M 12/19/16 09:24 Test: LIPASE; Value: 218; Range: 73-393; Units: U/L; Status: F Lab Order: Liver Profile; [facility] 12/19/16 09:24 Test: AST/SGOT; Value: 25; Range: 15-37; Units: U/L; Status: F Test: ALT/SGPT; Value: 46; Range: 12-78; Units: U/L; Status: F Test: ALKALINE PHOSPHATASE; Value: 101; Range: 45-117; Units: U/L; Status: F Test: BILIRUBIN,TOTAL; Value: 0.2; Range: 0.2-1.0; Units: MG/DL; Status: F Test: BILIRUBIN,DIRECT; Value: < 0.1; Range: 0.0-0.2; Units: MG/DL; Status: F Test: TOTAL PROTEIN; Value: 7.7; Range: 6.4-8.2; Units: GM/DL; Status: F Test: ALBUMIN; Value: 3.6; Range: 3.2-5.2; Units: GM/DL; Status: F Test: ALBUMIN/GLOBULIN RATIO; Value: 0.88; Range: 1.00-1.93; Abnormal: Below low normal; Status: F Lab Order: Urinalysis; [facility] 12/19/16 09:24 Test: APPEARANCE, URINE; Value: HAZY; Range: CLEAR; Status: F Test: COLOR, URINE; Value: YELLOW; Range: YELLOW; Status: F Test: PH,URINE; Value: 6.0; Range: 5.0-9.0; Units: UNITS; Status: F Test: SPECIFIC GRAVITY URINE AUTO; Value: 1.017; Range: 1.002-1.035; Status: F Test: PROTEIN, URINE AUTO; Value: NEGATIVE; Range: NEGATIVE; Units: mg/dL; Status: F Test: GLUCOSE, URINE (UA) AUTO; Value: NEGATIVE; Range: NEGATIVE; Units: mg/dL; Status: F Test: KETONE, URINE AUTO; Value: NEGATIVE; Range: NEGATIVE; Units: mg/dL; Status: F Test: UROBILINOGEN, URINE AUTO; Value: 0.2; Range: 0.0-2.0; Units: mg/dL; Status: F Test: BILIRUBIN, URINE AUTO; Value: NEGATIVE; Range: NEGATIVE; Status: F Test: NITRITE, URINE AUTO; Value: NEGATIVE; Range: NEGATIVE; Status: F Test: LEUKOCYTE ESTERASE, URINE AUTO; Value: NEGATIVE; Range: NEGATIVE; Status: F Test: BLOOD, URINE BLOOD; Value: 1+; Range: NEGATIVE; Abnormal: Above high normal; Status: F Test: WBC, URINE AUTO; Value: 0; Range: 0-3; Units: /HPF; Status: F Test: RBC, URINE AUTO; Value: 0; Range: 0-3; Units: /HPF; Status: F Test: BACTERIA, URINE AUTO; Value: NEGATIVE; Range: NEGATIVE; Status: F Test: SQUAMOUS EPITHELIAL CELL UR AU; Value: 2; Range: 0-6; Units: /HPF; Status: F Test: MUCUS, URINE; Value: SMALL; Range: NEGATIVE; Status: F Test: HYALINE CAST, URINE AUTO; Value: 0; Range: 0-1; Units: /LPF; Status: F Lab Order: Hcg, Serum Quantitative; SPEC'M 12/19/16 09:24 Test: HCG, SERUM QUANTITATIVE; Value: < 1.0; Units: MIU/ML; Status: F Test Note: ; GESTATIONAL AGE APPROXIMATE HCG RANGE (MIU/ML) 0.2-1 WEEK 5-50 1-2 WEEKS 50-500 2-3 WEEKS 100-5,000 3-4 WEEKS 500-10,000 4-5 WEEKS 1,000-50,000 5-6 WEEKS 10,000-100,000 6-8 WEEKS 15,000-200,000 2-3 MONTHS 10,000-100,000 NON FEMALES LESS THAN 3.0 Patient samples may contain human heterophilic antibodies that could react with immunoassays to give falsely elevated or depressed results. This assay has been designed to minimize interference from heterophilic antibodies. Elevated hCG levels have also been associated with trophoblastic disease and nontrophoblastic neoplasms. The possibility of having these diseases should be considered before a diagnosis of is made. This test is not intended for use as a surrogate marker for aiding in the diagnosis or monitoring the treatment of cancer patients. [employer] methodology. Lab Order: Fingerstick Blood Sugar; SPEC'M 12/19/16 09:05 Test: BEDSIDE GLUCOSE; Value: 183; Range: 70-105; Abnormal: Above high normal; Units: MG/DL; Status: F Outcome: 11:51 Discharge ordered by Provider. fg 12:07 Discharge Assessment: patient administered narcotics - no. The following High Risk ml6 Discharge criteria are identified: None. Discharged to home ambulatory. Condition: improved. Discharge instructions given to patient, Instructed on discharge instructions, follow up and referral plans. medication usage, Demonstrated understanding of instructions, medications, Pt was receptive of discharge instructions/ teaching. No special radiology studies were completed. Property :Personal belongings accompany Pt. 12:08 Patient left the ED. ml6 Signatures: Dispatcher [employer] EDDanilo Watson, Carey Corrales RN, Katharina Crooks lg, RN RN jo3 Carlitos Quintana RN RN ml6 Dilia Marx RN RN 1 David Rosales Jennalee jp5 Kenia Land MD MD Corrections: (The following items were deleted from the chart) 11:33 11:31 General: Appears in no apparent distress, comfortable, Behavior is appropriate jo3 for age, cooperative, pleasant, jo3 MTDD
--- NOTE | 2016-12-21 13:08 | EDDOCDS ---
Physician Documentation [facility] Name: Cami Dc Age: 36 yrs Sex: Female : 1980 Arrival Date: 12/19/2016 Time: 08:18 Bed 5 Private MD: Disposition: 12/19/16 11:51 Discharged to Home/Self Care. Impression: Hyperglycemia, unspecified, Headache. - Condition is Stable. - Discharge Instructions: General Headache Without Cause, Hyperglycemia. - Medication Reconciliation, Local Pharmacy Hours form. - Follow up: Yisel Hernandez; When: Call to arrange an appointment; Reason: Continuance of care. - Problem is new. - Symptoms have improved. Historical: - Allergies: No known drug Allergies; - Home Meds: 1. metformin 500 mg Oral tab 2 times per day (Last dose: 12/19/2016 06:00) - PMHx: Diabetes - NIDDM: controlled; Ovarian cyst; - PSHx: none; - Social history: Smoking status: Patient states was never smoker of tobacco. No barriers to communication noted, The patient speaks fluent Italian, Speaks appropriately for age. - Family history: Not pertinent. - : The pt / caregiver states he / she is not on anticoagulants. Home medication list is obtained from the patient. - Exposure Risk Screening:: None identified. Vital Signs: 12/19 09:01 BP 116 / 83; Pulse 85; Resp 18; Temp 97.3(O); Pulse Ox 98% on R/A; Weight 61.69 kg / dem1 136 lbs (R); Height 5 ft. 6 in. (167.64 cm) (R); Pain 0/10; 11:54 BP 122 / 84; Pulse 80; Resp 18; Temp 97.0(O); Pulse Ox 100% on R/A; Pain 0/10; dem1 09:01 Body Mass Index 21.95 (61.69 kg, 167.64 cm) dem1 MDM: 08:59 IV Saline Lock ordered. fg 08:59 Undress patient appropriately for examination ordered. fg 09:00 Basic Metabolic Profile Ordered. EDMS 09:00 CBC with Diff Ordered. EDMS 09:00 Lipase Ordered. EDMS 09:00 Liver Profile Ordered. EDMS 09:00 Urinalysis Ordered. EDMS 09:00 Urine Culture Ordered. EDMS 09:00 NOTHING BY MOUTH+DIET ordered. EDMS 09:00 Hcg, Serum Quantitative Ordered. EDMS 09:14 Fingerstick Blood Sugar Ordered. EDMS 09:55 NS 0.9% 1000 ml IV at bolus once ordered. fg 09:55 ketorolac 30 mg IVP once ordered. fg 09:55 Metoclopramide 5 mg IV at 40 mg/hr once over 15 mins ordered. fg 10:28 Financial registration complete. lg 10:58 [facility] Payment Agreement was scanned into BackTrack and attached to record. lg 14:57 T-Sheet-- Draft Copy was scanned into BackTrack and attached to record. gb Administered Medications: 10:15 Drug: NS 0.9% 1000 ml [sodium chloride 0.9 % intravenous solution] Route: IV; Rate: jo3 bolus; Site: left antecubital; 12:08 Follow up: IV Status: Completed infusion; Infusion discontinued; IV Intake: 1000ml ml6 10:15 Drug: Metoclopramide 5 mg [metoclopramide 5 mg/mL injection solution] Route: IV; Rate: jo3 40 mg/hr; Infused Over: 15 mins; Site: left antecubital; 10:31 Follow up: IV Status: Completed infusion jo3 11:25 Drug: ketorolac 30 mg [ketorolac 30 mg/mL (1 mL) injection solution (1 mL)] Route: IVP; jo3 Site: left antecubital; Signatures: Dispatcher [employer] EDMS Oriana Braga, Reg Reg gb Carey Barnes, Reg Reg lg Katharina SorensenRN RN jo3 Carlitos Quintana RN RN ml6 Dilia Marx RN RN hs1 Kenia Land MD MD fg The chart was reviewed and I authenticate all verbal orders and agree with the evaluation and treatment provided.Attachments: 10:58 [facility] Payment Agreement lg 14:57 T-Sheet-- Draft Copy gb Chart Complete MTDD
--- NOTE | 2016-12-21 13:08 | EDDOCDS ---
Physician Documentation [facility] Name: Cami Dc Age: 36 yrs Sex: Female : 1980 Arrival Date: 12/19/2016 Time: 08:18 Bed 5 Private MD: Disposition: 12/19/16 11:51 Discharged to Home/Self Care. Impression: Hyperglycemia, unspecified, Headache. - Condition is Stable. - Discharge Instructions: General Headache Without Cause, Hyperglycemia. - Medication Reconciliation, Local Pharmacy Hours form. - Follow up: Yisel Hernandez; When: Call to arrange an appointment; Reason: Continuance of care. - Problem is new. - Symptoms have improved. Historical: - Allergies: No known drug Allergies; - Home Meds: 1. metformin 500 mg Oral tab 2 times per day (Last dose: 12/19/2016 06:00) - PMHx: Diabetes - NIDDM: controlled; Ovarian cyst; - PSHx: none; - Social history: Smoking status: Patient states was never smoker of tobacco. No barriers to communication noted, The patient speaks fluent Welsh, Speaks appropriately for age. - Family history: Not pertinent. - : The pt / caregiver states he / she is not on anticoagulants. Home medication list is obtained from the patient. - Exposure Risk Screening:: None identified. Vital Signs: 12/19 09:01 BP 116 / 83; Pulse 85; Resp 18; Temp 97.3(O); Pulse Ox 98% on R/A; Weight 61.69 kg / dem1 136 lbs (R); Height 5 ft. 6 in. (167.64 cm) (R); Pain 0/10; 11:54 BP 122 / 84; Pulse 80; Resp 18; Temp 97.0(O); Pulse Ox 100% on R/A; Pain 0/10; dem1 09:01 Body Mass Index 21.95 (61.69 kg, 167.64 cm) dem1 MDM: 08:59 IV Saline Lock ordered. fg 08:59 Undress patient appropriately for examination ordered. fg 09:00 Basic Metabolic Profile Ordered. EDMS 09:00 CBC with Diff Ordered. EDMS 09:00 Lipase Ordered. EDMS 09:00 Liver Profile Ordered. EDMS 09:00 Urinalysis Ordered. EDMS 09:00 Urine Culture Ordered. EDMS 09:00 NOTHING BY MOUTH+DIET ordered. EDMS 09:00 Hcg, Serum Quantitative Ordered. EDMS 09:14 Fingerstick Blood Sugar Ordered. EDMS 09:55 NS 0.9% 1000 ml IV at bolus once ordered. fg 09:55 ketorolac 30 mg IVP once ordered. fg 09:55 Metoclopramide 5 mg IV at 40 mg/hr once over 15 mins ordered. fg 10:28 Financial registration complete. lg 10:58 [facility] Payment Agreement was scanned into [employer] and attached to record. lg 14:57 T-Sheet-- Draft Copy was scanned into [employer] and attached to record. gb Administered Medications: 10:15 Drug: NS 0.9% 1000 ml [sodium chloride 0.9 % intravenous solution] Route: IV; Rate: jo3 bolus; Site: left antecubital; 12:08 Follow up: IV Status: Completed infusion; Infusion discontinued; IV Intake: 1000ml ml6 10:15 Drug: Metoclopramide 5 mg [metoclopramide 5 mg/mL injection solution] Route: IV; Rate: jo3 40 mg/hr; Infused Over: 15 mins; Site: left antecubital; 10:31 Follow up: IV Status: Completed infusion jo3 11:25 Drug: ketorolac 30 mg [ketorolac 30 mg/mL (1 mL) injection solution (1 mL)] Route: IVP; jo3 Site: left antecubital; Signatures: Dispatcher [employer] EDMS Oriana Braga, Reg Reg gb Carey Barnes, Reg Reg lg Katharina SorensenRN RN jo3 Carlitos Quintana RN RN ml6 Dilia Marx RN RN hs1 Kenia Land MD MD fg The chart was reviewed and I authenticate all verbal orders and agree with the evaluation and treatment provided.Attachments: 10:58 [facility] Payment Agreement lg 14:57 T-Sheet-- Draft Copy gb Chart Complete MTDD
--- NOTE | 2016-12-21 13:09 | EDDOCDS ---
Nurse's Notes [facility] Name: Cami Dc Age: 36 yrs Sex: Female : 1980 Arrival Date: 12/19/2016 Time: 08:18 Bed 5 Private MD: Diagnosis: Hyperglycemia, unspecified;Headache Presentation: 12/19 08:59 Presenting complaint: Patient states: last night sugar was around 230's. Went home hs1 checked sugar after working all night and sugar around 350. Patient took metformin and slept for a couple hours and rechecked sugar and found to be 407. Patient here for evaluation and also complaining of headache. Patient shows Glucometer at this time and last finger check 216 around 748 this morning. Adult Sepsis Screening: The patient does not have new or worsening altered mentation. Patient's respiratory rate is less than 22. Systolic blood pressure is greater than 100. Patient has a qSOFA score of 0- Negative Sepsis Screen. Suicide/Homicide risk assessment- the patient denies having any suicidal and/or homicidal ideations and does not present with any other emotional, behavioral or mental health complaints. Status: Patient is not a housetrailer servicer or dependent. Transition of care: patient was not received from another setting of care. 08:59 Acuity: DIRK Level 3 hs1 08:59 Method Of Arrival: Walkin/Carried/Asstd hs1 Triage Assessment: 09:04 General: Appears in no apparent distress, Behavior is appropriate for age, cooperative. hs1 Pain: Location: headache Pain currently is 8 out of 10 on a pain scale. Quality of pain is described as throbbing, pulsating. HIV screening NA for this visit Offered previously. Neurological: Level of Consciousness is awake, alert, obeys commands. Respiratory: No deficits noted. GI: Reports nausea. Derm: No deficits noted. Historical: - Allergies: No known drug Allergies; - Home Meds: 1. metformin 500 mg Oral tab 2 times per day (Last dose: 12/19/2016 06:00) - PMHx: Diabetes - NIDDM: controlled; Ovarian cyst; - PSHx: none; - Social history: Smoking status: Patient states was never smoker of tobacco. No barriers to communication noted, The patient speaks fluent Scottish, Speaks appropriately for age. - Family history: Not pertinent. - : The pt / caregiver states he / she is not on anticoagulants. Home medication list is obtained from the patient. - Exposure Risk Screening:: None identified. Screenin:39 Screening information is obtained from the patient. Fall risk: No risks identified. jo3 Assistance ADL's: requires no assistance with activities of daily living. Abuse/DV Screen: The patient / caregiver reports he/she is: not in a situation that causes fear, pain or injury. Nutritional screening: No deficits noted. Advance Directives: There is no active DNR order. home support is adequate. Assessment: 09:35 General: Appears in no apparent distress, comfortable, well developed, well nourished, jo3 well groomed, Behavior is appropriate for age, cooperative, pleasant. General: Pt reports varying FSBS up to 400 through the night. Yesterday, FSBS in 200s through the day. Last night, developed VEGA, which persists this morning . Neurological: Level of Consciousness is awake, alert, Oriented to person, place, time. Cardiovascular: No deficits noted. Respiratory: Airway is patent Respiratory effort is even, unlabored. Derm: Skin is intact, Skin is dry, Skin is normal, Skin temperature is warm. 10:30 General: Appears in no apparent distress, comfortable, Behavior is appropriate for age, jo3 cooperative, pleasant. General: IVF infusing to asymptomatic site in LAC. Awaiting serum results for Toradol administration. Aware of plan of care . Neurological: No deficits noted. Level of Consciousness is awake, alert, Oriented to person, place, time. 11:31 General: Appears in no apparent distress, comfortable, Behavior is appropriate for age, jo3 cooperative, pleasant, Reports feeling improved at this time . Neurological: Level of Consciousness is awake, alert, Oriented to person, place, time. Cardiovascular: Capillary refill < 3 seconds is > 3 seconds Rhythm is regular. Derm: Skin is pink, warm & dry. 12:04 General: Appears in no apparent distress, comfortable, Behavior is appropriate for age, ml6 cooperative. Pain: Denies pain. Neurological: No deficits noted. Level of Consciousness is awake, alert, Oriented to person, place. Cardiovascular: No deficits noted. Capillary refill < 3 seconds is > 3 seconds in bilateral fingers Heart tones S1 S2 present Rhythm is regular. Respiratory: No deficits noted. Airway is patent Respiratory effort is even, unlabored, Respiratory pattern is regular, symmetrical, Breath sounds are clear bilaterally. Vital Signs: 09:01 BP 116 / 83; Pulse 85; Resp 18; Temp 97.3(O); Pulse Ox 98% on R/A; Weight 61.69 kg (R); dem1 Height 5 ft. 6 in. (167.64 cm) (R); Pain 0/10; 11:54 BP 122 / 84; Pulse 80; Resp 18; Temp 97.0(O); Pulse Ox 100% on R/A; Pain 0/10; dem1 09:01 Body Mass Index 21.95 (61.69 kg, 167.64 cm) [facility] ED Course: 08:19 Patient visited by Denis Preciado. jp5 08:19 Patient moved to Waiting jp5 08:42 Patient moved to Triage 1 dwg 08:57 Patient moved to 5 dwg 09:01 Patient visited by David Rosales. [facility] 09:03 Triage Initiated hs1 09:27 Kenia Land MD is Attending Physician. fg 09:27 Patient visited by Kenia Land MD. fg 09:39 The patient / caregiver is instructed regarding the plan of care and ED course. jo3 09:39 Inserted saline lock: 20 gauge in left antecubital area. Labs drawn. (by ED staff). jo3 Sent per order to lab. 09:40 Patient visited by Kahtarina Sorensen RN. jo3 10:32 Patient visited by Katharina Sorensen,DAVE. jo3 10:57 Patient name changed from Cami\S\\S\Dc\S\ to Cami\S\ \S\Dc. EDMS 10:58 [place] [place] was scanned into [employer] and attached to record. lg 11:34 Patient visited by Katharina Sorensen RN. jo3 11:50 Yisel Hernandez is Referral Physician. fg 11:55 Patient visited by David Rosales. dem1 12:07 Discontinued IV. No procedures done that require assistance. ml6 14:57 T-Sheet-- Draft Copy was scanned into [employer] and attached to record. gb Administered Medications: 10:15 Drug: NS 0.9% 1000 ml [sodium chloride 0.9 % intravenous solution] Route: IV; Rate: jo3 bolus; Site: left antecubital; 12:08 Follow up: IV Status: Completed infusion; Infusion discontinued; IV Intake: 1000ml ml6 10:15 Drug: Metoclopramide 5 mg [metoclopramide 5 mg/mL injection solution] Route: IV; Rate: jo3 40 mg/hr; Infused Over: 15 mins; Site: left antecubital; 10:31 Follow up: IV Status: Completed infusion jo3 11:25 Drug: ketorolac 30 mg [ketorolac 30 mg/mL (1 mL) injection solution (1 mL)] Route: IVP; jo3 Site: left antecubital; Intake: 12:08 IV: 1000.00ml; Total: 1000.00ml. ml6 Order Results: Lab Order: Basic Metabolic Profile; SPEC'M 12/19/16 09:24 Test: GLUCOSE, FASTING; Value: 192; Range: 70-105; Abnormal: Above high normal; Units: MG/DL; Status: F Test: BLOOD UREA NITROGEN; Value: 9; Range: 7-18; Units: MG/DL; Status: F Test: CREATININE FOR GFR; Value: 0.78; Range: 0.55-1.02; Units: MG/DL; Status: F Test: GLOMERULAR FILTRATION RATE; Value: > 60.0; Range: >60; Status: F Test: SODIUM LEVEL; Value: 138; Range: 136-145; Units: MEQ/L; Status: F Test: POTASSIUM SERUM; Value: 4.1; Range: 3.5-5.1; Units: MEQ/L; Status: F Test: CHLORIDE LEVEL; Value: 103; Range: 98-107; Units: MEQ/L; Status: F Test: CARBON DIOXIDE LEVEL; Value: 30; Range: 21-32; Units: MEQ/L; Status: F Test: ANION GAP; Value: 5; Range: 8-16; Abnormal: Below low normal; Units: MEQ/L; Status: F Test: CALCIUM LEVEL; Value: 8.8; Range: 8.5-10.1; Units: MG/DL; Status: F Test Note: ; Units are mL/min/1.73 m2 Chronic Kidney Disease Staging per NKF: Stage I & II GFR >=60 Normal to Mildly Decreased Stage III GFR 30-59 Moderately Decreased Stage IV GFR 15-29 Severely Decreased Stage V GFR <15 Very Little GFR Left ESRD GFR <15 on [employer] Lab Order: CBC with Diff; SPEC'M 12/19/16 09:24 Test: WHITE BLOOD COUNT; Value: 5.3; Range: 4.0-10.0; Units: K/mm3; Status: F Test: RED BLOOD COUNT; Value: 4.79; Range: 4.00-5.40; Units: M/mm3; Status: F Test: HEMOGLOBIN; Value: 11.5; Range: 12.0-16.0; Abnormal: Below low normal; Units: g/dl; Status: F Test: HEMATOCRIT; Value: 37.6; Range: 36.0-47.0; Units: %; Status: F Test: MEAN CORPUSCULAR VOLUME; Value: 78.4; Range: 80.0-96.0; Abnormal: Below low normal; Units: fl; Status: F Test: MEAN CORPUSCULAR HEMOGLOBIN; Value: 24.1; Range: 27.0-33.0; Abnormal: Below low normal; Units: pg; Status: F Test: MEAN CORPUSCULAR HGB CONC; Value: 30.7; Range: 32.0-36.5; Abnormal: Below low normal; Units: g/dl; Status: F Test: RED CELL DISTRIBUTION WIDTH; Value: 14.4; Range: 11.5-14.5; Units: %; Status: F Test: PLATELET COUNT, AUTOMATED; Value: 125; Range: 150-450; Abnormal: Below low normal; Units: k/mm3; Status: F Test: NEUTROPHILS %; Value: 43.1; Range: 36.0-66.0; Units: %; Status: F Test: LYMPH %; Value: 44.5; Range: 24.0-44.0; Abnormal: Above high normal; Units: %; Status: F Test: MONO %; Value: 3.3; Range: 0.0-5.0; Units: %; Status: F Test: EOS %; Value: 5.8; Range: 0.0-3.0; Abnormal: Above high normal; Units: %; Status: F Test: BASO %; Value: 0.6; Range: 0.0-1.0; Units: %; Status: F Test: LARGE UNSTAINED CELL %; Value: 2.7; Range: 0.0-4.0; Units: %; Status: F Test: NEUTROPHILS #; Value: 2.3; Range: 1.8-7.7; Units: K/mm3; Status: F Test: LYMPH #; Value: 2.4; Range: 1.5-4.5; Units: K/mm3; Status: F Test: MONO #; Value: 0.2; Range: 0.0-0.8; Units: K/mm3; Status: F Test: EOS #; Value: 0.3; Range: 0.0-0.50; Units: K/mm3; Status: F Test: BASO #; Value: 0.0; Range: 0.0-0.2; Units: K/mm3; Status: F Test: LARGE UNSTAINED CELL #; Value: 0.1; Range: 0.0-0.4; Units: K/mm3; Status: F Lab Order: Lipase; [facility] 12/19/16 09:24 Test: LIPASE; Value: 218; Range: 73-393; Units: U/L; Status: F Lab Order: Liver Profile; [facility] 12/19/16 09:24 Test: AST/SGOT; Value: 25; Range: 15-37; Units: U/L; Status: F Test: ALT/SGPT; Value: 46; Range: 12-78; Units: U/L; Status: F Test: ALKALINE PHOSPHATASE; Value: 101; Range: 45-117; Units: U/L; Status: F Test: BILIRUBIN,TOTAL; Value: 0.2; Range: 0.2-1.0; Units: MG/DL; Status: F Test: BILIRUBIN,DIRECT; Value: < 0.1; Range: 0.0-0.2; Units: MG/DL; Status: F Test: TOTAL PROTEIN; Value: 7.7; Range: 6.4-8.2; Units: GM/DL; Status: F Test: ALBUMIN; Value: 3.6; Range: 3.2-5.2; Units: GM/DL; Status: F Test: ALBUMIN/GLOBULIN RATIO; Value: 0.88; Range: 1.00-1.93; Abnormal: Below low normal; Status: F Lab Order: Urinalysis; [facility] 12/19/16 09:24 Test: APPEARANCE, URINE; Value: HAZY; Range: CLEAR; Status: F Test: COLOR, URINE; Value: YELLOW; Range: YELLOW; Status: F Test: PH,URINE; Value: 6.0; Range: 5.0-9.0; Units: UNITS; Status: F Test: SPECIFIC GRAVITY URINE AUTO; Value: 1.017; Range: 1.002-1.035; Status: F Test: PROTEIN, URINE AUTO; Value: NEGATIVE; Range: NEGATIVE; Units: mg/dL; Status: F Test: GLUCOSE, URINE (UA) AUTO; Value: NEGATIVE; Range: NEGATIVE; Units: mg/dL; Status: F Test: KETONE, URINE AUTO; Value: NEGATIVE; Range: NEGATIVE; Units: mg/dL; Status: F Test: UROBILINOGEN, URINE AUTO; Value: 0.2; Range: 0.0-2.0; Units: mg/dL; Status: F Test: BILIRUBIN, URINE AUTO; Value: NEGATIVE; Range: NEGATIVE; Status: F Test: NITRITE, URINE AUTO; Value: NEGATIVE; Range: NEGATIVE; Status: F Test: LEUKOCYTE ESTERASE, URINE AUTO; Value: NEGATIVE; Range: NEGATIVE; Status: F Test: BLOOD, URINE BLOOD; Value: 1+; Range: NEGATIVE; Abnormal: Above high normal; Status: F Test: WBC, URINE AUTO; Value: 0; Range: 0-3; Units: /HPF; Status: F Test: RBC, URINE AUTO; Value: 0; Range: 0-3; Units: /HPF; Status: F Test: BACTERIA, URINE AUTO; Value: NEGATIVE; Range: NEGATIVE; Status: F Test: SQUAMOUS EPITHELIAL CELL UR AU; Value: 2; Range: 0-6; Units: /HPF; Status: F Test: MUCUS, URINE; Value: SMALL; Range: NEGATIVE; Status: F Test: HYALINE CAST, URINE AUTO; Value: 0; Range: 0-1; Units: /LPF; Status: F Lab Order: Urine Culture; SPEC'M 12/19/16 09:24 Test: URINE CULTURE; Value: <EXTERNAL COMMENT eCWMed> FULL REPORT IN LAB NOTES (eCW and Medent).; Status: F Test: URINE CULTURE; Value: URINE CULTURE RESULT NO GROWTH; Status: F Lab Order: Hcg, Serum Quantitative; SPEC'M 12/19/16 09:24 Test: HCG, SERUM QUANTITATIVE; Value: < 1.0; Units: MIU/ML; Status: F Test Note: ; GESTATIONAL AGE APPROXIMATE HCG RANGE (MIU/ML) 0.2-1 WEEK 5-50 1-2 WEEKS 50-500 2-3 WEEKS 100-5,000 3-4 WEEKS 500-10,000 4-5 WEEKS 1,000-50,000 5-6 WEEKS 10,000-100,000 6-8 WEEKS 15,000-200,000 2-3 MONTHS 10,000-100,000 NON FEMALES LESS THAN 3.0 Patient samples may contain human heterophilic antibodies that could react with immunoassays to give falsely elevated or depressed results. This assay has been designed to minimize interference from heterophilic antibodies. Elevated hCG levels have also been associated with trophoblastic disease and nontrophoblastic neoplasms. The possibility of having these diseases should be considered before a diagnosis of is made. This test is not intended for use as a surrogate marker for aiding in the diagnosis or monitoring the treatment of cancer patients. [employer] methodology. Lab Order: Fingerstick Blood Sugar; SPEC'M 12/19/16 09:05 Test: BEDSIDE GLUCOSE; Value: 183; Range: 70-105; Abnormal: Above high normal; Units: MG/DL; Status: F Outcome: 11:51 Discharge ordered by Provider. fg 12:07 Discharge Assessment: patient administered narcotics - no. The following High Risk ml6 Discharge criteria are identified: None. Discharged to home ambulatory. Condition: improved. Discharge instructions given to patient, Instructed on discharge instructions, follow up and referral plans. medication usage, Demonstrated understanding of instructions, medications, Pt was receptive of discharge instructions/ teaching. No special radiology studies were completed. Property :Personal belongings accompany Pt. 12:08 Patient left the ED. ml6 Signatures: Dispatcher [employer] EDMS Danilo Berkowitz RN RN dwg Barnhardt, Gloria, Reg Reg gb Carey Barnes, Reg Reg lg Katharina Sorensen RN RN jo3 Carlitos Quintana RN RN ml6 Dilia Marx RN RN 1 David Rosales Jennalee jp Kenia Land MD MD fg Corrections: (The following items were deleted from the chart) 11:33 11:31 General: Appears in no apparent distress, comfortable, Behavior is appropriate jo3 for age, cooperative, pleasant, jo3 Chart Complete MTDD
== END 2016-12-19 12:08 | disposition home or self-care (01) ==
LOC: M ED 08:18
DX: E11.65 Type 2 diabetes mellitus with hyperglycemia (principal); R51 Headache; Z87.42 Personal history of other diseases of the female genital tract; Z79.84 Long term (current) use of oral hypoglycemic drugs
CPT/HCPCS: 36415; 80048; 80076; 81001; 83690; 84702; 85025; 87086; 96361; 96365; 96375; 99283; J1885; J2765

== ENCOUNTER → 2016-12-20 | Outpatient (REF) | payer OTHER ==
[2016-12-23 14:17] LABS: GAD-65 AUTOANTIBODY <5.0 U/mL (0.0-5.0)
== END ==
LOC: M LABDRAW1 12:53
PROVIDERS: ATTEND Internal Medicine Endocrinology, Diabetes & Metabolism
DX: E11.65 Type 2 diabetes mellitus with hyperglycemia (principal)

== ENCOUNTER → 2017-03-03 | Outpatient (CLI) | payer OTHER ==
[2017-03-03 19:24] LABS: CHOLESTEROL LEVEL 171 MG/DL (<200); TRIGLYCERIDES LEVEL 594 MG/DL (<150)
== END ==
LOC: M LAB 16:23
PROVIDERS: ATTEND Physician Assistant Medical
DX: E11.65 Type 2 diabetes mellitus with hyperglycemia (principal); E78.2 Mixed hyperlipidemia

== ENCOUNTER 2017-04-24 09:34 | Emergency (ER) | payer OTHER ==
[~2017-04-24] VITALS: Ht 170.2 cm; Wt 66.0 kg
[2017-04-24] MEDS ORDERED: METF500T PO (09:42)
[2017-04-24] MEDS ORDERED: KETOROLAC 60 MG/2 ML VIAL (J1885) IM ONE (10:30)
[2017-04-24] MEDS ORDERED: AUGMENTIN 875 MG TAB PO ONE (10:30)
[2017-04-24] MEDS ORDERED: ONDANSETRON 4 MG ORAL DISINTEGRATING TAB (S0181) PO ONE (10:30)
[2017-04-24] MEDS ORDERED: ACETAMINOPHEN 325 MG TAB PO ONE (10:30)
[2017-04-24] MEDS ORDERED: CLAR1TAB2 PO (11:24)
[2017-04-24] MEDS ORDERED: AUGM875T27 PO (11:24)
[2017-04-24] MEDS ORDERED: ZOFR4TAB3 PO (11:24)
[2017-04-24] MEDS ORDERED: NAPR500T PO (11:24)
[2017-04-24] MEDS ORDERED: MUCI600T34 PO (11:24)
[2017-04-24 11:37] VITALS: BP 146/77
== END 2017-04-24 11:41 | disposition home or self-care (01) ==
LOC: M ED 10:46
DX: R51 Headache (principal); J32.9 Chronic sinusitis, unspecified; E11.9 Type 2 diabetes mellitus without complications; Z79.84 Long term (current) use of oral hypoglycemic drugs

== ENCOUNTER → 2017-05-29 | Outpatient (CLI) | payer OTHER ==
[~2017-05-29] MED LIST: AUGM875T28 PO; CLAR1TAB2 PO; METF500T13 PO; MUCI600T37 PO; NAPR500T PO; ZOFR4TAB3 PO
--- NOTE | 2017-05-29 13:12 | REP ---
Pelvic ultrasound including transabdominal, endovaginal and Doppler ultrasound assessment: Comparison is 11/20/2016. The bladder is nondistended. The uterus is diffusely enlarged measuring 12.6 x 6.5 x 7.6 cm. The myometrium is inhomogeneous, however no discrete fibroids are identified. The endometrium is not thickened measuring 10.8 mm. Right ovary: Right ovary is normal size measuring 3.9 x 1.7 x 3.3 cm. There is a dominant 1.5 centimeter follicle. Left ovary: Left ovary is normal size measuring 2.2 x 1.2 x 1.6 cm. There is no dominant mass, follicle or cyst. There is vascular flow in both ovaries. The Doppler resistive index of the intraparenchymal arteries on the right is 0.52 and on the left 0.72. No free fluid in the pelvis. Impression: The large bulky uterus that demonstrates diffuse heterogeneity. However, no focal fibroid is identified. There is a 1.5 cm right ovarian follicle. There is vascular flow in both ovaries. Otherwise, negative pelvic ultrasound. Signed by Danilo Pederson MD 05/29/2017 01:04 P
== END ==
LOC: M RAD 12:10
PROVIDERS: ATTEND Registered Nurse
DX: N85.2 Hypertrophy of uterus (principal); N83.01 Follicular cyst of right ovary